=== PATIENT | male | born 1995 | race Caucasian/White ===

== ENCOUNTER 2019-05-23 18:42 | Emergency (ER) | payer OTHER, SELFPAY ==
[2019-05-23 18:59] VITALS: BP 153/81; PULSE 86; RESP 16; TEMP 36.4; O2SAT 100; BMI 26.4
[2019-05-23] MEDS: TET,DIPH,PERTUSS(ACELL),VAC/PF 0.5 ML SYRINGE IM (19:15)
[2019-05-23] MEDS: LIDO 1%/SOD BICARB 8.4% (10ML) 10 ML SYRINGE INJ ×2 (19:15→19:42)
--- NOTE | 2019-05-23 19:38 | ED.UPPEXIN ---
HPI - Extremity Injury (Upper) <PRATEEK Kirkpatrick - Last Filed: 05/23/19 21:37> General Chief Complaint: Extremity Injury, Upper Stated Complaint: left hand cut/ slippd on storm drain Time Seen by Provider: 05/23/19 18:47 Source: patient Mode of arrival: Ambulatory History of Present Illness HPI narrative: 23-year-old male presents to the emergency department complaining of an abrasion to his left hand after falling on the street last night around midnight. He states he tripped over his feet while walking on the road. He attempted to wash the area with soap and water but reports continued debris in the wound. Patient denies hitting his head, wrist pain, finger pain, or other concerns. He denies fevers, chills, nausea, vomiting, diarrhea, or other concerns. Related Data Previous Rx's Medication Instructions Recorded cephalexin [Keflex] 500 mg PO QID 10 Days #40 cap 05/23/19 Allergies Allergy/AdvReac Type Severity Reaction Status Date / Time No Known Drug Allergies Allergy Verified 05/23/19 19:15 Review of Systems <PRATEEK Kirkpatrick - Last Filed: 05/23/19 21:37> Review of Systems Narrative: REVIEW OF SYSTEMS: GENERAL: Denies fever or chills. HENT: Denies head trauma. EYE: Denies double vision or vision loss. CARDIOVASCULAR: Denies syncope. MUSCULOSKELETAL: Denies weakness, or deformities. INTEGUMENTARY: Complains of laceration/abrasion, see HPI. NEURO: Denies numbness or tingling. Patient History <PRATEEK Kirkpatrick - Last Filed: 05/23/19 21:37> Medical History (Updated 05/23/19 @ 21:32 by PRATEEK Kirkpatrick) No significant medical problems (Acute) Social History Smoking Status: Current some day smoker alcohol intake frequency: a few times a week Alcohol type: beer Substance Use Type: marijuana Exam <PRATEEK Kirkpatrick - Last Filed: 05/23/19 21:37> Narrative Exam Narrative: PHYSICAL EXAMINATION: GENERAL: Well groomed, alert, and cooperative. Answers questions promptly and appropriately. Vital signs noted. HENT: Normocephalic, atraumatic. RESPIRATORY: Normal respiratory rate, trachea midline, airway patent. No stridor, nasal flaring or accessory muscle use. MUSCULOSKELETAL: Full range of motion of all fingers in hand and wrist of left hand Normal gait and coordination. Equal tone and mass bilaterally. EXTREMITIES: CMS intact. Moves all extremities. SKIN: Warm, dry, soft, appropriate color for ethnicity. 3.5 cm laceration/road rash abrasion with flap to ulnar side of palmar aspect of left hand. Wound bed with large amount of small foreign debris. Bleeding controlled. No surrounding erythema. Patient's wound was irrigated extensively with over 300 mL of normal saline. Wound was explored, small amount of rocks were removed. Small foreign pre remains despite irrigation and manual removal. Three stitches were placed to the bottom of skin flap as subcutaneous tissue was visible. The top of the wound was left without closure due to prolonged time since laceration occurred and significant amount of foreign debris within the wound. NEURO: Alert and Oriented X 3. Good coordination. PSYCH: Appropriate affect and mood. Initial Vital Signs Initial Vital Signs: Vital Signs Temperature 97.5 F L 05/23/19 18:59 Pulse Rate 86 05/23/19 18:59 Respiratory Rate 16 05/23/19 18:59 Blood Pressure 153/81 H 05/23/19 18:59 Pulse Oximetry 100 05/23/19 18:59 <Torsten Stewart DO - Last Filed: 05/24/19 03:31> Initial Vital Signs Initial Vital Signs: Vital Signs Temperature 97.5 F L 05/23/19 18:59 Pulse Rate 86 05/23/19 18:59 Respiratory Rate 16 05/23/19 18:59 Blood Pressure 153/81 H 05/23/19 18:59 Pulse Oximetry 100 05/23/19 18:59 Procedures <PRATEEK Kirkpatrick - Last Filed: 05/23/19 21:37> Laceration Repair Laceration 1: Site: hand Side (If applicable): left Size (cm): 3.5 Description: flap Depth: simple, single layer Local Anesthetic: lidocaine 1% and with bicarb Amount of anesthesia used (mL): 20 Pre-repair: wound explored and irrigated extensively Course <PRATEEK Kirkpatrick - Last Filed: 05/23/19 21:37> Course Course Narrative: Tdap was updated, wound was irrigated with 300ml of NS. Orders Ordered: Discontinued Medications Bacitracin (Bacitracin) 1 applic TOP NOW ONE Stop: 05/23/19 20:02 Last Admin: 05/23/19 20:06 Dose: 1 applic Documented by: TANA Cephalexin HCl (Keflex) 500 mg PO NOW ONE Stop: 05/23/19 20:02 Last Admin: 05/23/19 20:05 Dose: 500 mg Documented by: TANA Diphtheria/Tetanus/Acell Pertussis (Adacel) 0.5 ml IM .ONCE ONE Stop: 05/23/19 19:09 Last Admin: 05/23/19 19:15 Dose: 0.5 ml Documented by: TANA Lidocaine/Sodium Bicarbonate (Buffered Lidocaine 10 Ml Syr) 10 ml INJ NOW ONE Stop: 05/23/19 19:12 Last Admin: 05/23/19 19:15 Dose: 10 ml Documented by: TANA Lidocaine/Sodium Bicarbonate (Buffered Lidocaine 10 Ml Syr) 10 ml INJ NOW ONE Stop: 05/23/19 19:39 Last Admin: 05/23/19 19:42 Dose: 10 ml Documented by: TANA Vital Signs Vital signs: Vital Signs - 8 hr 05/23/19 18:59 Temperature 97.5 F L Pulse Rate 86 Respiratory Rate 16 Blood Pressure 153/81 H Pulse Oximetry 100 <Torsten Stewart DO - Last Filed: 05/24/19 03:31> Orders Ordered: Discontinued Medications Bacitracin (Bacitracin) 1 applic TOP NOW ONE Stop: 05/23/19 20:02 Last Admin: 05/23/19 20:06 Dose: 1 applic Documented by: TANA Cephalexin HCl (Keflex) 500 mg PO NOW ONE Stop: 05/23/19 20:02 Last Admin: 05/23/19 20:05 Dose: 500 mg Documented by: TANA Diphtheria/Tetanus/Acell Pertussis (Adacel) 0.5 ml IM .ONCE ONE Stop: 05/23/19 19:09 Last Admin: 05/23/19 19:15 Dose: 0.5 ml Documented by: TANA Lidocaine/Sodium Bicarbonate (Buffered Lidocaine 10 Ml Syr) 10 ml INJ NOW ONE Stop: 05/23/19 19:12 Last Admin: 05/23/19 19:15 Dose: 10 ml Documented by: TANA Lidocaine/Sodium Bicarbonate (Buffered Lidocaine 10 Ml Syr) 10 ml INJ NOW ONE Stop: 05/23/19 19:39 Last Admin: 05/23/19 19:42 Dose: 10 ml Documented by: TANA Vital Signs Vital signs: Vital Signs - 8 hr 05/23/19 18:59 Temperature 97.5 F L Pulse Rate 86 Respiratory Rate 16 Blood Pressure 153/81 H Pulse Oximetry 100 [facility] - Extremity Injury (Upper) <PRATEEK Kirkpatrick - Last Filed: 05/23/19 21:37> Medical Records Attestation: I reviewed the patient's medical records. Lab Data Attestation: I reviewed the patient's lab results. [facility] Narrative Medical decision making narrative: Abrasions last/green since/road rash requiring repair due to visualization of subcutaneous tissue. However, a small amount of the wound was left open due to prolonged duration since incident and foreign debris. Patient was given Keflex due to increased risk for infection. Tdap was updated. Patient was instructed to remove sutures in 7-10 days. He is instructed to monitor for signs of worsening infection. ED/Return precautions given for new or worsening symptoms. Discharge Plan Departure Patient Disposition: Home Clinical Impression: Abrasion Laceration of hand Qualifiers: Encounter type: initial encounter Foreign body presence: with foreign body Laterality: left Qualified Code(s): S61.422A - Laceration with foreign body of left hand, initial encounter Discharge Date/Time: 05/23/19 20:24 Instructions: DI for Laceration Repair -- Complex Activity Restrictions/Additional Instructions: Thank you for entrusting me with your care today. As discussed, 3 sutures were placed in your hand. You were prescribed antibiotics for prevention of wound infection as there is multiple debris in your wound. Here tetanus was updated. Please leave your dressing in place for the next 24 hours. Follow up with your primary care provider in the next week for re-evaluation. Monitor for signs of infection such as pus or discharge, increased redness, fevers, chills, or other concerning symptoms--please seek immediate care of the symptoms develop. Prescriptions: New cephalexin [Keflex] 500 mg capsule 500 mg PO QID 10 Days Qty: 40 RF: 0 Referrals: Monae Joel PA-C [Primary Care Provider] -
[2019-05-23] MEDS: cephALEXin 250 MG CAPSULE 500 MG PO (20:05)
[2019-05-23] MEDS: BACITRACIN OINT 0.9 GM PCKT 1 APPLIC TOP (20:06)
== END 2019-05-23 20:24 | disposition home or self-care (01) ==
PROVIDERS: Emergency Provider Nurse Practitioner; PCP Physician Assistant
DX: S60.512A Abrasion of left hand, initial encounter (principal); S61.422A Laceration with foreign body of left hand, initial encounter; W01.0XXA Fall on same level from slipping, tripping and stumbling without subsequent striking against object, initial encounter; Z23 Encounter for immunization
CPT/HCPCS: 90471; 99283; 90715